=== PATIENT | male | born 1990 | race Native Hawaiian/Other Pacific Islander ===

== ENCOUNTER 2022-11-12 18:00 | Emergency (ER) | payer OTHER ==
[~2022-11-12] VITALS: Ht 185.4 cm; Wt 83.9 kg
[2022-11-12 19:40] VITALS: BP 131/75; TEMP 98.5
== END 2022-11-12 19:45 | disposition home or self-care (01) ==
LOC: ED 18:00
PROC: 0HQDXZZ Repair Right Lower Arm Skin, External Approach (ICD-10-PCS; principal; 2022-11-12)
DX: S51.811A Laceration without foreign body of right forearm, initial encounter (principal); W27.0XXA Contact with workbench tool, initial encounter; Y92.89 Other specified places as the place of occurrence of the external cause
CPT/HCPCS: 90471; 90715; 96372; 99283; J0696; J1885